=== PATIENT | female | born 1995 | race American Indian/Alaskan Native ===

== ENCOUNTER 2017-03-17 16:43 | Emergency (ER) | payer OTHER, MEDICAID ==
[2017-03-17 17:42] VITALS: BP 110/82
== END 2017-03-17 19:35 | disposition left against medical advice (07) ==
LOC: DL.ED 16:43
DX: Z53.21 Procedure and treatment not carried out due to patient leaving prior to being seen by health care provider (principal)
CPT/HCPCS: 99282

== ENCOUNTER 2017-03-17 21:19 | Emergency (ER) | payer MEDICAID, OTHER ==
[2017-03-17 21:30] VITALS: BP 120/80
[2017-03-17] MEDS ORDERED: Lidocaine 1% 30 ML SDV INJECT ONE (23:41)
[2017-03-17] MEDS ORDERED: Bacitracin Oint 1 GM U/D Packet TOP ONE (23:41)
--- NOTE | 2017-03-18 00:37 | EDM.PDOC ---
ED HPI GENERAL MEDICAL PROBLEM - General Chief Complaint: Laceration Stated Complaint: KNEE PAIN [id number] Time Seen by Provider: 03/17/17 23:00 Source of Information: Reports: Patient History Limitations: Reports: No Limitations - History of Present Illness INITIAL COMMENTS - FREE TEXT/NARRATIVE: laceration to right knee after falling onto sharp rock while playing basketball on gravel Len other injury, Occurred approximately 2pm today. Presented earlier but had left and came back. Onset: Today Duration: Hour(s): Location: Reports: Lower Extremity, Right Right Knee Pain Score (Numeric/FACES): 5 - Related Data Allergies Allergy/AdvReac Type Severity Reaction Status Date / Time No Known Allergies Allergy Verified 03/17/17 21:27 Home Meds: Home Meds . [No Known Home Meds] 03/17/17 [History] Past Medical History - Past Health History Medical/Surgical History: Denies Medical/Surgical History HEENT History: Reports: None Cardiovascular History: Reports: None Respiratory History: Reports: None Gastrointestinal History: Reports: None Genitourinary History: Reports: None Other OB/BYN History: Had section October 2014 Musculoskeletal History: Reports: None Neurological History: Reports: None Psychiatric History: Reports: None Endocrine/Metabolic History: Reports: None Hematologic History: Reports: None Immunologic History: Reports: None Oncologic (Cancer) History: Reports: None Dermatologic History: Reports: None Social & Family History - Family History Family Medical History: Noncontributory - Tobacco Use Smoking Status *Q: Light Tobacco Smoker Years of Tobacco use: 4 Packs/Tins Daily: 0.4 Used Tobacco, but Quit: Yes Month Tobacco Last Used: january Second Hand Smoke Exposure: No - Caffeine Use Caffeine Use: Reports: Coffee, Energy Drinks, Soda, Tea - Alcohol Use Days Per Week of Alcohol Use: 0 - Recreational Drug Use Recreational Drug Use: No ED ROS GENERAL - Review of Systems Review Of Systems: ROS reveals no pertinent complaints other than HPI. ED EXAM, SKIN/RASH Exam: See Below Exam Limited By: No Limitations General Appearance: Alert, Mild Distress Cardiovascular: Normal Peripheral Pulses Neurological: Alert, Oriented Psychiatric: Normal Affect Skin: Warm. No: Intact Location, Skin: Lower Extremity, Right Comments: 4cm gaping laceration lateral and below patella on RLE ED SKIN PROCEDURES - Laceration/Wound Repair Right Distal Knee Lac/wound length in cm: 3.5 Appearance: Subcutaneous Distal NVT: Neuro & Vascular Intact, No Tendon Injury Anesthetic Type: Local Local Anesthesia - Lidocaine (Xylocaine): 1% Plain Local Anesthetic Volume: 4cc Skin Prep: Chlorhexidine (Hibiciens), Saline Exploration/Debridement/Repair: Wound Explored, in a Bloodless Field, Minimal Debridement Closed with: Sutures Suture Size: 3-0 # of Sutures: 9 Suture Type: Nylon, Interrupted Suture Size: 3-0 # of Sutures: 3 Repaired with: Vicryl Sterile Dressing Applied: Nurse Tetanus Status Addressed: Yes Complications: No Right Lower Knee Lac/wound length in cm: 4 (gaping) Appearance: Subcutaneous Distal NVT: Neuro & Vascular Intact Anesthetic Type: Local Local Anesthesia - Lidocaine (Xylocaine): 1% Plain Local Anesthetic Volume: 4cc Skin Prep: Chlorhexidine (Hibiciens), Saline Exploration/Debridement/Repair: Wound Explored, Minimal Debridement Closed with: Sutures Suture Size: 3-0 # of Sutures: 9 Suture Type: Nylon Suture Size: 3-0 # of Sutures: 3 Repaired with: Vicryl Drain Placement: No Sterile Dressing Applied: Nurse Tetanus Status Addressed: Yes (2014) Complications: No Course - Vital Signs Last Recorded V/S: Last Vital Signs Temp 98.4 F 03/17/17 21:27 Pulse 98 03/17/17 21:27 Resp 18 03/17/17 21:27 BP 120/80 03/17/17 21:27 Pulse Ox 100 03/17/17 21:27 - Orders/Labs/Meds Meds: Medications Discontinued Medications Generic Name Dose Route Start Last Admin Trade Name Keara PRN Reason Stop Dose Admin Bacitracin 1 dose 03/17/17 23:41 03/18/17 00:05 Bacitracin Oint 1 Gm TOP 03/17/17 23:42 1 dose ONETIME ONE Administration Lidocaine HCl 30 ml 03/17/17 23:41 03/18/17 00:05 Xylocaine-Mpf 1% INJECT 03/17/17 23:42 30 ml ONETIME ONE Administration Departure - Departure Time of Disposition: 00:33 Disposition: Home, Self-Care 01 Condition: good Clinical Impression: Laceration of right knee Qualifiers: Encounter type: initial encounter Qualified Code(s): S81.011A - Laceration without foreign body, right knee, initial encounter - Discharge Information Instructions: Laceration Care, Adult, [id number] Forms: ED Department Discharge Additional Instructions: check to confirm tetnus status that it ws done in 2015. If not will need to have updated Saturday avoid strain on knee, limit bending follow up if redness or drainage sutures out in 2 weeks
== END 2017-03-18 00:37 | disposition home or self-care (01) ==
LOC: DL.ED 21:19
DX: S81.011A Laceration without foreign body, right knee, initial encounter (principal); Z87.891 Personal history of nicotine dependence; W19.XXXA Unspecified fall, initial encounter; Y93.67 Activity, basketball
CPT/HCPCS: 12002; 99282

== ENCOUNTER 2017-11-18 00:52 | Emergency (ER) | payer MEDICAID ==
[2017-11-18 01:09] VITALS: BP 117/75
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
[2017-11-18 01:52] LABS: CHLORIDE,CL 102 mmol/L (101-111); SODIUM,NA 137 mmol/L (135-145)
== END 2017-11-18 01:58 | disposition home or self-care (01) ==
LOC: DL.ED 00:52
DX: Z77.098 Contact with and (suspected) exposure to other hazardous, chiefly nonmedicinal, chemicals (principal); F17.210 Nicotine dependence, cigarettes, uncomplicated
CPT/HCPCS: 36415; 71046; 80053; 81001; 81025; 85025; 99284

== ENCOUNTER 2019-03-03 08:45 | Emergency (ER) | payer MEDICAID, OTHER ==
--- NOTE | 2019-03-03 08:56 | EDM.PDOC ---
ED HPI GENERAL MEDICAL PROBLEM - General Stated Complaint: CHEST AND BACK PAIN Time Seen by Provider: 03/03/19 08:56 Source of Information: Reports: Patient, RN, RN Notes Reviewed History Limitations: Reports: No Limitations - History of Present Illness INITIAL COMMENTS - FREE TEXT/NARRATIVE: Pt to ER with c/o severe epigastric pain that radiates to the back. She states she woke up this morning about 0630. Rates the pain 5-6/10. States she last ate at 11pm last night, [employer]. States she still has her gallbladder. Denies chest pain or SOB. Denies fever, chills, N/V/D. States she has never had a pain like this in the past. States there could be chance of . Onset: Today, Sudden Duration: Constant Location: Reports: Chest, Abdomen Quality: Reports: Sharp, Stabbing Severity: Severe Improves with: Reports: None Worsens with: Reports: None Associated Symptoms: Reports: Chest Pain Upper Back Pain Score (Numeric/FACES): 8 Middle Chest Pain Score (Numeric/FACES): 8 - Related Data Allergies Allergy/AdvReac Type Severity Reaction Status Date / Time No Known Allergies Allergy Verified 03/03/19 08:57 Home Meds: Home Meds . 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 ED EXAM, GENERAL - Physical Exam Exam: See Below Exam Limited By: No Limitations General Appearance: Alert, WD/WN, Anxious, Moderate Distress Eye Exam: Bilateral Eye: EOMI, Normal Inspection Ears: Normal External Exam, Hearing Grossly Normal Nose: Normal Inspection Throat/Mouth: Normal Inspection, Normal Voice, No Airway Compromise Head: Atraumatic, Normocephalic Neck: Normal Inspection, Supple, Non-Tender, Full Range of Motion Respiratory/Chest: No Respiratory Distress, Lungs Clear, Normal Breath Sounds, No Accessory Muscle Use, Chest Non-Tender Cardiovascular: Normal Peripheral Pulses, Regular Rate, Rhythm, No Edema, No Gallop, No JVD, No Murmur, No Rub Peripheral Pulses: 2+: Radial (L), Radial (R) GI/Abdominal: Normal Bowel Sounds, Soft, No Organomegaly, No Distention, No Abnormal Bruit, No Mass, Pelvis Stable, Tender (epigastrum) (Female) Exam: Deferred Rectal (Female) Exam: Deferred Back Exam: Normal Inspection, Full Range of Motion, NT Extremities: Normal Inspection, Normal Range of Motion, Non-Tender, Normal Capillary Refill, No Pedal Edema Neurological: Alert, Oriented, CN II-XII Intact, Normal Cognition, Normal Gait, Normal Reflexes, No Motor/Sensory Deficits Psychiatric: Anxious, Tearful Skin Exam: Warm, Dry, Intact, Normal Color, No Rash Lymphatic: No Adenopathy Course - Vital Signs Last Recorded V/S: Last Vital Signs Temp 97.3 F 03/03/19 08:58 Pulse 81 03/03/19 08:58 Resp 24 H 03/03/19 08:58 BP 105/77 03/03/19 08:58 Pulse Ox 100 03/03/19 08:58 - Orders/Labs/Meds Orders: Active Orders 24 hr Category Date Time Status EKG Documentation Completion [RC] STAT Care 03/03/19 09:01 Active Peripheral IV Care [RC] . DIRECTED Care 03/03/19 09:01 Active CULTURE URINE [RM] Stat Lab 03/03/19 09:01 Received Sodium Chloride 0.9% [Saline Flush] Med 03/03/19 09:00 Active 10 ml FLUSH ASDIRECTED PRN Peripheral IV Insertion Adult [OM.PC] Stat Oth 03/03/19 09:00 Ordered Medication Orders Sodium Chloride (Saline Flush) 10 ml FLUSH ASDIRECTED PRN PRN Reason: Keep Vein Open Last Admin: 03/03/19 09:23 Dose: 10 ml Labs: Laboratory Tests 05/21/19 05/21/19 05/21/19 Range/Units 08:55 08:55 08:55 WBC 8.5 (5.0-10.0) 10^3/uL RBC 4.60 (4.2-5.4) 10^6/uL Hgb 13.1 (12.0-16.0) g/dL Hct 38.9 (37.0-47.0) % MCV 84.6 (80-100) fL MCH 28.5 (27.0-34.0) pg MCHC 33.7 (33.0-35.0) g/dL Plt Count 265 (150-450) 10^3/uL Neut % (Auto) 49.5 (42.2-75.2) % Lymph % (Auto) 36.5 (20.5-50.1) % [place] % (Auto) 8.5 H (2-8) % Eos % (Auto) 5.3 H (1.0-3.0) % Baso % (Auto) 0.2 (0.0-1.0) % PT 9.6 (9.0-12.0) SEC INR 1.0 (0.9-1.2) Sodium 136 (135-145) mmol/L Potassium 3.3 L (3.6-5.0) mmol/L Chloride 104 (101-111) mmol/L Carbon Dioxide 22.0 (21.0-31.0) mmol/L Anion Gap 13.3 BUN 16 (7-18) mg/dL Creatinine 0.8 (0.6-1.3) mg/dL Est Cr Clr Drug Dosing 85.76 mL/min Estimated GFR (MDRD) > 60 BUN/Creatinine Ratio 20.00 Glucose 116 H (74-105) mg/dL Calcium 8.7 (8.4-10.2) mg/dl Total Bilirubin 1.0 (0.2-1.0) mg/dL AST 24 (10-42) IU/L ALT 25 (10-60) IU/L Alkaline Phosphatase 62 (42-121) IU/L Troponin I < 0.02 (0.00-0.02) ng/ml Total Protein 7.2 (6.7-8.2) g/dl Albumin 3.7 (3.2-5.5) g/dl Globulin 3.5 Albumin/Globulin Ratio 1.06 Amylase 22 L (28-100) U/L Lipase 26 (22-51) U/L Urine Color (YELLOW) Urine Appearance (CLEAR) Urine pH (5.0-9.0) Ur Specific [place] (1.005-1.030) Urine Protein (NEGATIVE) Urine Glucose (UA) (NEGATIVE) Urine Ketones (NEGATIVE) Urine Occult Blood (NEGATIVE) Urine Nitrite (NEGATIVE) Urine Bilirubin (NEGATIVE) Urine Urobilinogen (0.2-1.0) mg/dL Ur Leukocyte Esterase (NEGATIVE) Urine RBC /HPF Urine WBC (0-5/HPF) /HPF Ur Epithelial Cells (NOT SEEN) /HPF Urine Bacteria (0-FEW/HPF) /HPF Urine Mucus (NOT SEEN) /LPF Urine HCG, Qual Urine Opiates Screen (NEGATIVE) Ur Oxycodone Screen (NEGATIVE) Urine Methadone Screen (NEGATIVE) Ur Barbiturates Screen (NEGATIVE) U Tricyclic Antidepress (NEGATIVE) Ur Phencyclidine Scrn (NEGATIVE) Ur Amphetamine Screen (NEGATIVE) U Methamphetamines Scrn (NEGATIVE) Urine MDMA Screen (NEGATIVE) U Benzodiazepines Scrn (NEGATIVE) Urine Cocaine Screen (NEGATIVE) U Marijuana (THC) Screen (NEGATIVE) Ethyl Alcohol < 5 mg/dL 03/03/19 03/03/19 03/03/19 Range/Units 09:01 09:01 09:01 WBC (5.0-10.0) 10^3/uL RBC (4.2-5.4) 10^6/uL Hgb (12.0-16.0) g/dL Hct (37.0-47.0) % MCV (80-100) fL MCH (27.0-34.0) pg MCHC (33.0-35.0) g/dL Plt Count (150-450) 10^3/uL Neut % (Auto) (42.2-75.2) % Lymph % (Auto) (20.5-50.1) % [place] % (Auto) (2-8) % Eos % (Auto) (1.0-3.0) % Baso % (Auto) (0.0-1.0) % PT (9.0-12.0) SEC INR (0.9-1.2) Sodium (135-145) mmol/L Potassium (3.6-5.0) mmol/L Chloride (101-111) mmol/L Carbon Dioxide (21.0-31.0) mmol/L Anion Gap BUN (7-18) mg/dL Creatinine (0.6-1.3) mg/dL Est Cr Clr Drug Dosing mL/min Estimated GFR (MDRD) BUN/Creatinine Ratio Glucose (74-105) mg/dL Calcium (8.4-10.2) mg/dl Total Bilirubin (0.2-1.0) mg/dL AST (10-42) IU/L ALT (10-60) IU/L Alkaline Phosphatase (42-121) IU/L Troponin I (0.00-0.02) ng/ml Total Protein (6.7-8.2) g/dl Albumin (3.2-5.5) g/dl Globulin Albumin/Globulin Ratio Amylase (28-100) U/L Lipase (22-51) U/L Urine Color Dark yellow (YELLOW) Urine Appearance Slightly cloudy (CLEAR) Urine pH 6.0 (5.0-9.0) Ur Specific [place] >= 1.030 (1.005-1.030) Urine Protein 30 H (NEGATIVE) Urine Glucose (UA) Negative (NEGATIVE) Urine Ketones Negative (NEGATIVE) Urine Occult Blood Large H (NEGATIVE) Urine Nitrite Negative (NEGATIVE) Urine Bilirubin Negative (NEGATIVE) Urine Urobilinogen 1.0 (0.2-1.0) mg/dL Ur Leukocyte Esterase Small H (NEGATIVE) Urine RBC 5-10 H /HPF Urine WBC 5-10 H (0-5/HPF) /HPF Ur Epithelial Cells Many H (NOT SEEN) /HPF Urine Bacteria Few (0-FEW/HPF) /HPF Urine Mucus Moderate H (NOT SEEN) /LPF Urine HCG, Qual Negative Urine Opiates Screen Negative (NEGATIVE) Ur Oxycodone Screen Negative (NEGATIVE) Urine Methadone Screen Negative (NEGATIVE) Ur Barbiturates Screen Negative (NEGATIVE) U Tricyclic Antidepress Negative (NEGATIVE) Ur Phencyclidine Scrn Negative (NEGATIVE) Ur Amphetamine Screen Negative (NEGATIVE) U Methamphetamines Scrn Positive H (NEGATIVE) Urine MDMA Screen Negative (NEGATIVE) U Benzodiazepines Scrn Negative (NEGATIVE) Urine Cocaine Screen Negative (NEGATIVE) U Marijuana (THC) Screen Negative (NEGATIVE) Ethyl Alcohol mg/dL Meds: Medications Generic Name Dose Route Start Last Admin Trade Name Freq PRN Reason Stop Dose Admin Sodium Chloride 10 ml 03/03/19 09:00 03/03/19 09:23 Saline Flush FLUSH 10 ml ASDIRECTED PRN Administration Keep Vein Open Discontinued Medications Generic Name Dose Route Start Last Admin Trade Name Keara PRN Reason Stop Dose Admin Sodium Chloride 1,000 mls @ 999 mls/hr 03/03/19 09:00 03/03/19 09:22 Normal Saline IV 03/03/19 10:00 999 mls/hr .BOLUS ONE Administration Morphine Sulfate 2 mg 03/03/19 09:00 Morphine IVPUSH 03/03/19 09:01 ONETIME ONE Pantoprazole Sodium 80 mg 03/03/19 09:01 03/03/19 09:23 Protonix Iv IVPUSH 03/03/19 09:02 80 mg .BOLUS ONE Administration - Radiology Interpretation Free Text/Narrative:: Chest xray: No acute findings See rad report - Re-Assessments/Exams Free Text/Narrative Re-Assessment/Exam: 03/03/19 10:24 Patient states improvement with pain after protonix given. Departure - Departure Time of Disposition: 10:25 Disposition: Home, Self-Care 01 Condition: Fair Clinical Impression: Acid reflux Qualifiers: Esophagitis presence: without esophagitis Qualified Code(s): K21.9 - Gastro- esophageal reflux disease without esophagitis Instructions: Indigestion, [id number], Heartburn, [id number], Food Choices for Gastroesophageal Reflux Disease, Adult, Ltin-gn-[id number] Forms: ED Department Discharge Additional Instructions: RX: omeprazole Drink plenty of water Avoid spicy foods, chocolate, caffeine, pop, coffee, mint, tea Sit upright for at least 30 minutes after eating Follow up with your primary care facility if no improvement - My Orders Last 24 Hours: My Active Orders 03/03/19 09:00 Sodium Chloride 0.9% [Saline Flush] 10 ml FLUSH ASDIRECTED PRN Peripheral IV Insertion Adult [OM.PC] Stat 03/03/19 09:01 EKG Documentation Completion [RC] STAT Peripheral IV Care [RC] . DIRECTED CULTURE URINE [RM] Stat - Assessment/Plan Last 24 Hours: My Active Orders 03/03/19 09:00 Sodium Chloride 0.9% [Saline Flush] 10 ml FLUSH ASDIRECTED PRN Peripheral IV Insertion Adult [OM.PC] Stat 03/03/19 09:01 EKG Documentation Completion [RC] STAT Peripheral IV Care [RC] . DIRECTED CULTURE URINE [RM] Stat
[2019-03-03] MEDS ORDERED: Sodium Chloride 0.9% 10 ML Syringe FLUSH PRN (09:00)
[2019-03-03] MEDS ORDERED: Morphine 2 MG/ML Syringe IVPUSH ONE (09:00)
[2019-03-03] MEDS ORDERED: Sodium Chloride 0.9% 1,000 ML IV ONE (09:00)
[2019-03-03] MEDS ORDERED: Pantoprazole 40 MG Vial IVPUSH ONE (09:01)
[2019-03-03 09:10] VITALS: BP 105/77
[2019-03-03 09:27] LABS: ANION GAP 13.3; CHLORIDE,CL 104 mmol/L (101-111); SODIUM,NA 136 mmol/L (135-145)
--- NOTE | 2019-03-03 09:31 | CR ---
Clinical history: 23-year-old female chest pain. Interpretation: (upright AP portable) No acute new cardiopulmonary abnormality identified in the interval since 18 November 2017. Normal cardiac silhouette without cephalization of flow, signs of alveolar edema or dependent effusion. Reshma thorax unremarkable. No lung mass, hilar lymphadenopathy or focal lobar pneumonia. No atelectasis or collapse. No pneumothorax.
== END 2019-03-03 10:37 | disposition home or self-care (01) ==
LOC: DL.ED 08:45
DX: K21.9 Gastro-esophageal reflux disease without esophagitis (principal)
CPT/HCPCS: 36415; 71045; 80053; 80305; 81001; 81025; 82150; 83690; 84484; 85025; 85610; 87086; 87088; 87186; 93005; 96361; 96374; 99285; C9113; G0480; J7030; J2270

== ENCOUNTER 2019-03-10 00:50 | Emergency (ER) | payer OTHER ==
[2019-03-10 01:42] LABS: ANION GAP 16.8; CHLORIDE,CL 103 mmol/L (101-111); SODIUM,NA 136 mmol/L (135-145)
[2019-03-10] MEDS ORDERED: Potassium Chloride 10 MEQ Tab.ER PO ONE (03:32)
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
[2019-03-10] MEDS ORDERED: Iopamidol 612 MG/ML 100 ML Bottle IVPUSH ONE (04:14)
== END 2019-03-10 03:50 | disposition home or self-care (01) ==
LOC: DL.ED 00:50
DX: S61.412A Laceration without foreign body of left hand, initial encounter (principal); S20.219A Contusion of unspecified front wall of thorax, initial encounter; F15.10 Other stimulant abuse, uncomplicated; E87.6 Hypokalemia; V49.59XA Passenger injured in collision with other motor vehicles in traffic accident, initial encounter
CPT/HCPCS: 36415; 70450; 71260; 72125; 74177; 80053; 80305; 81001; 81025; 85025; 85610; 85730; 87086; 99284; A9270; G0480; Q9967

== ENCOUNTER 2020-03-14 16:47 | Emergency (ER) | payer MEDICAID, OTHER ==
--- NOTE | 2020-03-14 17:10 | EDM.PDOC ---
ED HPI GENERAL MEDICAL PROBLEM - General Chief Complaint: Gastrointestinal Problem Stated Complaint: ABD/BACK PAIN/VOMITING Time Seen by Provider: 03/14/20 17:10 Source of Information: Reports: Patient, Old Records, RN, RN Notes Reviewed History Limitations: Reports: No Limitations - History of Present Illness INITIAL COMMENTS - FREE TEXT/NARRATIVE: Pt presents to ER from home by POV with c/o upper abdominal pain that began yesterday, and has been associated with severe nausea and vomiting, and some diarrhea. Pt denies fever, chills, flank pain or dysuria. She admits to RUQ pain and epigastric pain that radiates straight through to the middle of the back. Pt admits to marijuana use, and tried some methamphetamine a few days ago. Her LMP was "about" 2 or 3 months ago. She has not taken a home test. Denies alcohol use. Onset: Gradual Duration: Constant Location: Reports: Abdomen Quality: Reports: Ache, Pressure, Sharp Severity: Severe Improves with: Reports: None Worsens with: Reports: Eating Associated Symptoms: Reports: No Other Symptoms Abdomen Pain Score (Numeric/FACES): 8 - Related Data Allergies Allergy/AdvReac Type Severity Reaction Status Date / Time No Known Allergies Allergy Verified 03/14/20 17:37 Home Meds: Home Meds . 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 Musculoskeletal History: Reports: None Neurological History: Reports: None Psychiatric History: Reports: None Endocrine/Metabolic History: Reports: None Hematologic History: Reports: None Immunologic History: Reports: None Oncologic (Cancer) History: Reports: None Dermatologic History: Reports: None Social & Family History - Family History Family Medical History: Noncontributory - Caffeine Use Caffeine Use: Reports: Soda - Alcohol Use Alcohol Use History: No - Recreational Drug Use Recreational Drug Use: Yes Drug Use in Last 12 Months: Yes Recreational Drug Type: Reports: Marijuana/Hashish, Methamphetamine Recreational Drug Use Frequency: Socially ED ROS GENERAL - Review of Systems Review Of Systems: Comprehensive ROS is negative, except as noted in HPI. ED EXAM, GI/ABD - Physical Exam Exam: See Below Exam Limited By: No Limitations General Appearance: Alert, Mild Distress Eyes: Bilateral: EOMI (Slight scleral icterus) Nose: Normal Inspection, Normal Mucosa, No Blood Throat/Mouth: Normal Lips, Normal Teeth, Normal Gums, Normal Oropharynx, Normal Voice, No Airway Compromise, Other (Dry oral mucosa) Head: Atraumatic, Normocephalic Neck: Normal Inspection, Supple, Non-Tender, Full Range of Motion. No: Lymphadenopathy (L), Lymphadenopathy (R) Respiratory/Chest: No Respiratory Distress, Lungs Clear, Normal Breath Sounds, No Accessory Muscle Use, Chest Non-Tender Cardiovascular: Normal Peripheral Pulses, Regular Rate, Rhythm, No Edema, No Gallop, No JVD, No Murmur, No Rub GI/Abdominal Exam: Normal Bowel Sounds, Soft, No Organomegaly, No Distention, No Abnormal Bruit, No Mass, Guarding (at epigastric region), Tender (RUQ, epigastric). No: Rigid, Rebound (Female) Exam: Deferred Rectal (Female) Exam: Deferred Back Exam: Normal Inspection, Full Range of Motion. No: CVA Tenderness (L), CVA Tenderness (R) Extremities: Normal Inspection Neurological: Alert, Oriented, CN II-XII Intact, Normal Cognition, Normal Gait, No Motor/Sensory Deficits Psychiatric: Normal Affect, Normal Mood Skin Exam: Warm, Dry, Intact, No Rash. No: Ecchymosis, Petechiae Course - Vital Signs Last Recorded V/S: Last Vital Signs Temp 97.6 F 03/14/20 17:00 Pulse 70 03/14/20 17:00 Resp 14 03/14/20 17:00 BP 111/71 03/14/20 17:00 Pulse Ox 100 03/14/20 17:00 - Orders/Labs/Meds Orders: Active Orders 24 hr Category Date Time Status Peripheral IV Care [RC] . DIRECTED Care 03/14/20 17:12 Active CULTURE URINE [RM] Stat Lab 03/14/20 17:09 Received Sodium Chloride 0.9% [Saline Flush] Med 03/14/20 17:11 Active 10 ml FLUSH ASDIRECTED PRN Peripheral IV Insertion Adult [OM.PC] Stat Oth 03/14/20 17:12 Ordered Medication Orders Sodium Chloride (Saline Flush) 10 ml FLUSH ASDIRECTED PRN PRN Reason: Keep Vein Open Last Admin: 03/14/20 17:32 Dose: 10 ml Labs: Laboratory Tests 03/14/20 03/14/20 03/14/20 Range/Units 17:09 17:18 17:18 WBC 12.0 H (5.0-10.0) 10^3/uL RBC 5.10 (4.2-5.4) 10^6/uL Hgb 14.6 (12.0-16.0) g/dL Hct 43.8 (37.0-47.0) % MCV 85.9 D (80-100) fL MCH 28.6 (27.0-34.0) pg MCHC 33.3 (33.0-35.0) g/dL Plt Count 245 (150-450) 10^3/uL Neut % (Auto) 88.9 H (42.2-75.2) % Lymph % (Auto) 7.1 L (20.5-50.1) % [place] % (Auto) 3.8 (2-8) % Eos % (Auto) 0.1 L (1.0-3.0) % Baso % (Auto) 0.1 (0.0-1.0) % Sodium 138 (136-145) mmol/L Potassium 3.9 (3.5-5.1) mmol/L Chloride 101 (98-107) mmol/L Carbon Dioxide 27 (21-32) mmol/L Anion Gap 13.9 H (7-13) mEq/L BUN 10 (7-18) mg/dL Creatinine 0.86 (0.55-1.02) mg/dL Est Cr Clr Drug Dosing 82.72 mL/min Estimated GFR (MDRD) > 60 BUN/Creatinine Ratio 11.6 (No establ ref range) Glucose 145 H (74-99) mg/dL Calcium 8.5 (8.5-10.1) mg/dL Total Bilirubin 5.0 H (0.2-1.0) mg/dL AST 514 H (15-37) U/L ALT 986 H (14-59) U/L Alkaline Phosphatase 194 H (46-116) U/L Total Protein 7.7 (6.4-8.2) g/dL Albumin 3.6 (3.4-5.0) g/dL Globulin 4.1 Albumin/Globulin Ratio 0.88 Amylase 1364 H (25-115) U/L Lipase 7204 H (73-393) U/L Urine Color Dark yellow (YELLOW) Urine Appearance Slightly cloudy (CLEAR) Urine pH 6.0 (5.0-9.0) Ur Specific [place] >= 1.030 (1.005-1.030) Urine Protein Trace H (NEGATIVE) Urine Glucose (UA) Negative (NEGATIVE) Urine Ketones Negative (NEGATIVE) Urine Occult Blood Negative (NEGATIVE) Urine Nitrite Negative (NEGATIVE) Urine Bilirubin Large H (NEGATIVE) Urine Urobilinogen 1.0 (0.2-1.0) mg/dL Ur Leukocyte Esterase Small H (NEGATIVE) Urine RBC 0-5 /HPF Urine WBC 50-75 H (0-5/HPF) /HPF Ur Epithelial Cells Few (NOT SEEN) /HPF Amorphous Sediment Few (NOT SEEN) /HPF Urine Bacteria Few (0-FEW/HPF) /HPF Urine Mucus Moderate H (NOT SEEN) /LPF Urine Trichomonas Present H (NOT SEEN) /HPF Urine HCG, Qual Urine Opiates Screen (NEGATIVE) Ur Oxycodone Screen (NEGATIVE) Urine Methadone Screen (NEGATIVE) Ur Barbiturates Screen (NEGATIVE) U Tricyclic Antidepress (NEGATIVE) Ur Phencyclidine Scrn (NEGATIVE) Ur Amphetamine Screen (NEGATIVE) U Methamphetamines Scrn (NEGATIVE) Urine MDMA Screen (NEGATIVE) U Benzodiazepines Scrn (NEGATIVE) Urine Cocaine Screen (NEGATIVE) U Marijuana (THC) Screen (NEGATIVE) 03/14/20 03/14/20 Range/Units 17:19 17:19 WBC (5.0-10.0) 10^3/uL RBC (4.2-5.4) 10^6/uL Hgb (12.0-16.0) g/dL Hct (37.0-47.0) % MCV (80-100) fL MCH (27.0-34.0) pg MCHC (33.0-35.0) g/dL Plt Count (150-450) 10^3/uL Neut % (Auto) (42.2-75.2) % Lymph % (Auto) (20.5-50.1) % [place] % (Auto) (2-8) % Eos % (Auto) (1.0-3.0) % Baso % (Auto) (0.0-1.0) % Sodium (136-145) mmol/L Potassium (3.5-5.1) mmol/L Chloride (98-107) mmol/L Carbon Dioxide (21-32) mmol/L Anion Gap (7-13) mEq/L BUN (7-18) mg/dL Creatinine (0.55-1.02) mg/dL Est Cr Clr Drug Dosing mL/min Estimated GFR (MDRD) BUN/Creatinine Ratio (No establ ref range) Glucose (74-99) mg/dL Calcium (8.5-10.1) mg/dL Total Bilirubin (0.2-1.0) mg/dL AST (15-37) U/L ALT (14-59) U/L Alkaline Phosphatase (46-116) U/L Total Protein (6.4-8.2) g/dL Albumin (3.4-5.0) g/dL Globulin Albumin/Globulin Ratio Amylase (25-115) U/L Lipase (73-393) U/L Urine Color (YELLOW) Urine Appearance (CLEAR) Urine pH (5.0-9.0) Ur Specific [place] (1.005-1.030) Urine Protein (NEGATIVE) Urine Glucose (UA) (NEGATIVE) Urine Ketones (NEGATIVE) Urine Occult Blood (NEGATIVE) Urine Nitrite (NEGATIVE) Urine Bilirubin (NEGATIVE) Urine Urobilinogen (0.2-1.0) mg/dL Ur Leukocyte Esterase (NEGATIVE) Urine RBC /HPF Urine WBC (0-5/HPF) /HPF Ur Epithelial Cells (NOT SEEN) /HPF Amorphous Sediment (NOT SEEN) /HPF Urine Bacteria (0-FEW/HPF) /HPF Urine Mucus (NOT SEEN) /LPF Urine Trichomonas (NOT SEEN) /HPF Urine HCG, Qual Negative Urine Opiates Screen Negative (NEGATIVE) Ur Oxycodone Screen Negative (NEGATIVE) Urine Methadone Screen Negative (NEGATIVE) Ur Barbiturates Screen Negative (NEGATIVE) U Tricyclic Antidepress Negative (NEGATIVE) Ur Phencyclidine Scrn Negative (NEGATIVE) Ur Amphetamine Screen Positive H (NEGATIVE) U Methamphetamines Scrn Positive H (NEGATIVE) Urine MDMA Screen Negative (NEGATIVE) U Benzodiazepines Scrn Negative (NEGATIVE) Urine Cocaine Screen Negative (NEGATIVE) U Marijuana (THC) Screen Positive H (NEGATIVE) Meds: Medications Generic Name Dose Route Start Last Admin Trade Name Freq PRN Reason Stop Dose Admin Sodium Chloride 10 ml 03/14/20 17:11 03/14/20 17:32 Saline Flush FLUSH 10 ml ASDIRECTED PRN Administration Keep Vein Open Discontinued Medications Generic Name Dose Route Start Last Admin Trade Name Freq PRN Reason Stop Dose Admin Azithromycin 1,000 mg 03/14/20 17:52 03/14/20 18:05 Zithromax PO 03/14/20 17:53 1,000 mg ONETIME ONE Administration Hydromorphone HCl 1 mg 03/14/20 17:53 03/14/20 18:04 Dilaudid IVPUSH 03/14/20 17:54 1 mg ONETIME ONE Administration Sodium Chloride 1,000 mls @ 999 mls/hr 03/14/20 17:12 03/14/20 18:20 Normal Saline IV 03/14/20 18:12 400 mls/hr .BOLUS ONE Infusion Ceftriaxone Sodium 1 gm/ 50 mls @ 100 mls/hr 03/14/20 17:51 03/14/20 18:11 Sodium Chloride IV 03/14/20 18:20 100 mls/hr ONETIME ONE Administration Metronidazole 500 mg/ Premix 100 mls @ 100 mls/hr 03/14/20 17:51 03/14/20 18: 48 IV 03/14/20 18:50 100 mls/hr ONETIME ONE Administration Iopamidol 100 ml 03/14/20 17:54 03/14/20 18:25 Isovue-300 (61%) IVPUSH 03/14/20 17:55 75 ml ONETIME ONE Administration Ketorolac Tromethamine 30 mg 03/14/20 17:50 03/14/20 18:20 Toradol IVPUSH 03/14/20 17:51 Not Given ONETIME ONE Ondansetron HCl 4 mg 03/14/20 17:12 03/14/20 17:32 Zofran IV 03/14/20 17:13 4 mg ONETIME ONE Administration Ondansetron HCl 4 mg 03/14/20 17:52 03/14/20 18:05 Zofran IV 03/14/20 17:53 4 mg ONETIME ONE Administration - Radiology Interpretation Free Text/Narrative:: [facility] Final Radiology Report Call: [phone] assistance Online chat: [email or web address] Name: ANDRE PENA Age: 24Years F Date: 03/14/2020 SSN: -- : [id number] Study: CT ABDOMEN PELVIS W CONT Requesting Physician: DAE GOMEZ Images: [id number] Addl Studies: Provided Clinical History: pancreatitis, elev. LFTs, RUQ epigastric pain Contrast: With Contrast Medium: Isovue 300 Contrast Amount: 75 mL Contrast Method: RAC Page 1 of 2 PROCEDURE INFORMATION: Exam: CT Abdomen And Pelvis With Contrast Exam date and time: 03/14/2020 6:15 PM Age: 24 years old Clinical indication: Abdominal pain; Localized; Right upper quadrant (ruq); Additional info: Pancreatitis, elev. Lfts, ruq epigastric pain TECHNIQUE: Imaging protocol: Computed tomography of the abdomen and pelvis with intravenous contrast. Radiation optimization: All CT scans at this facility use at least one of these dose optimization techniques: automated exposure control; mA and/or kV adjustment per patient size (includes targeted exams where dose is matched to clinical indication); or iterative reconstruction. Contrast material: ISOVUE 300; Contrast volume: 75 ml; Contrast route: RAC; COMPARISON: No relevant prior studies available. FINDINGS: Liver: Normal. No mass. Gallbladder and bile ducts: There is mild gallbladder wall thickening . The gallbladder is not distended. There is trace pericholecystic fluid. The gallbladder demonstrates layering density consistent with tiny nonopaque calculi or sludge. There is no evidence of biliary ductal dilation. Pancreas: There is moderate peripancreatic inflammatory stranding and fluid, consistent with moderate acute pancreatitis. There is no evidence of pancreatic necrosis. No visible pseudocyst. There is no evidence of abscess formation. Spleen: Normal. No splenomegaly. Adrenals: Normal. No mass. Kidneys and ureters: Normal. No hydronephrosis. Stomach and bowel: See "Soft tissues" finding. Appendix: No evidence of appendicitis. ANDRE PENA | Final Radiology Report CONFIDENTIALITY STATEMENT This report is intended only for use by the referring physician, and only in accordance with law. If you received this in error, call [phone]. Page 2 of 2 Intraperitoneal space: Unremarkable. No free air. Trace fluid cul-de-sac. Vasculature: Unremarkable. No abdominal aortic aneurysm. Lymph nodes: Unremarkable. No enlarged lymph nodes. Bladder: Unremarkable as visualized. Reproductive: Unremarkable as visualized. Bones/joints: Unremarkable. No acute fracture. Soft tissues: There is a fat-containing umbilical hernia. No bowel loops are involved. The defect in the wall measures 4-5 mm. IMPRESSION: 1. Acute pancreatitis. 2. Abnormal gallbladder. Correlate with clinical data. While the gallbladder is not distended superimposed cholecystitis cannot be excluded on the basis of imaging findings. 3. Other findings as described. Thank you for allowing us to participate in the care of your patient. Dictated and Authenticated by: Getachew Vang MD 03/14/2020 6:44 PM Central Time ([place] & [place]) Departure - Departure Time of Disposition: 18:46 Disposition: DC/Tfer to [facility] 02 Condition: Fair, Serious Clinical Impression: Vaginal trichomoniasis, STD exposure, Marijuana abuse, Methamphetamine abuse Acute pancreatitis Qualifiers: Pancreatitis type: biliary Acute pancreatitis complication: unspecified Qualified Code(s): K85.10 - Biliary acute pancreatitis without necrosis or infection Cholecystitis with cholelithiasis Qualifiers: Cholelithiasis location: gallbladder and bile duct Cholecystitis acuity: acute Biliary obstruction: with biliary obstruction Qualified Code(s): K80.63 - Calculus of gallbladder and bile duct with acute cholecystitis with obstruction - Discharge Information *PRESCRIPTION DRUG MONITORING PROGRAM REVIEWED*: Not Applicable *COPY OF PRESCRIPTION DRUG MONITORING REPORT IN PATIENT TEVIN: Not Applicable Forms: ED Department Discharge, Interfacility Transfer EMTALA Sepsis Event Note - Focused Exam Vital Signs: Vital Signs Temp Pulse Resp BP Pulse Ox 03/14/20 17:00 97.6 F 70 14 111/71 100 Date Exam was Performed: 03/14/20 Time Exam was Performed: 18:54 - My Orders Last 24 Hours: My Active Orders 03/14/20 17:09 CULTURE URINE [RM] Stat 03/14/20 17:11 Sodium Chloride 0.9% [Saline Flush] 10 ml FLUSH ASDIRECTED PRN 03/14/20 17:12 Peripheral IV Care [RC] . DIRECTED Peripheral IV Insertion Adult [OM.PC] Stat - Assessment/Plan Last 24 Hours: My Active Orders 03/14/20 17:09 CULTURE URINE [RM] Stat 03/14/20 17:11 Sodium Chloride 0.9% [Saline Flush] 10 ml FLUSH ASDIRECTED PRN 03/14/20 17:12 Peripheral IV Care [RC] . DIRECTED Peripheral IV Insertion Adult [OM.PC] Stat
[2020-03-14] MEDS ORDERED: Sodium Chloride 0.9% 10 ML Syringe FLUSH PRN (17:11)
[2020-03-14] MEDS ORDERED: Sodium Chloride 0.9% 1,000 ML IV ONE (17:12)
[2020-03-14] MEDS ORDERED: Ondansetron 4 MG/2 ML SDV IV ONE ×2 (17:12→17:52)
[2020-03-14 17:37] VITALS: BP 111/71; PULSE 70
[2020-03-14 17:49] LABS: ANION GAP 13.9 mEq/L (7-13); CHLORIDE,CL 101 mmol/L (98-107); SODIUM,NA 138 mmol/L (136-145)
[2020-03-14] MEDS ORDERED: Ketorolac 30 MG/ML SDV IVPUSH ONE (17:50)
[2020-03-14] MEDS ORDERED: cefTRIAXone 1 GM in Sodium Chloride 0.9% 50 ML IV ONE (17:51)
[2020-03-14] MEDS ORDERED: metroNIDAZOLE/Normal Saline 500 MG in Premix Bag 100 BAG IV ONE (17:51)
[2020-03-14] MEDS ORDERED: Azithromycin 250 MG Tab PO ONE (17:52)
[2020-03-14] MEDS ORDERED: HYDROmorphone 1 MG/ML Syringe IVPUSH ONE (17:53)
[2020-03-14] MEDS ORDERED: Iopamidol 612 MG/ML 100 ML Bottle IVPUSH ONE (17:54)
--- NOTE | 2020-03-14 18:44 | CT ---
PROCEDURE INFORMATION: Exam: CT Abdomen And Pelvis With Contrast Exam date and time: 03/14/2020 6:15 PM Age: 24 years old Clinical indication: Abdominal pain; Localized; Right upper quadrant (ruq); Additional info: Pancreatitis, elev. Lfts, ruq epigastric pain TECHNIQUE: Imaging protocol: Computed tomography of the abdomen and pelvis with intravenous contrast. Radiation optimization: All CT scans at this facility use at least one of these dose optimization techniques: automated exposure control; mA and/or kV adjustment per patient size (includes targeted exams where dose is matched to clinical indication); or iterative reconstruction. Contrast material: ISOVUE 300; Contrast volume: 75 ml; Contrast route: RAC; COMPARISON: No relevant prior studies available. FINDINGS: Liver: Normal. No mass. Gallbladder and bile ducts: There is mild gallbladder wall thickening . The gallbladder is not distended. There is trace pericholecystic fluid. The gallbladder demonstrates layering density consistent with tiny nonopaque calculi or sludge. There is no evidence of biliary ductal dilation. Pancreas: There is moderate peripancreatic inflammatory stranding and fluid, consistent with moderate acute pancreatitis. There is no evidence of pancreatic necrosis. No visible pseudocyst. There is no evidence of abscess formation. Spleen: Normal. No splenomegaly. Adrenals: Normal. No mass. Kidneys and ureters: Normal. No hydronephrosis. Stomach and bowel: See "Soft tissues" finding. Appendix: No evidence of appendicitis. Intraperitoneal space: Unremarkable. No free air. Trace fluid cul-de-sac. Vasculature: Unremarkable. No abdominal aortic aneurysm. Lymph nodes: Unremarkable. No enlarged lymph nodes. Bladder: Unremarkable as visualized. Reproductive: Unremarkable as visualized. Bones/joints: Unremarkable. No acute fracture. Soft tissues: There is a fat-containing umbilical hernia. No bowel loops are involved. The defect in the wall measures 4-5 mm. IMPRESSION: 1. Acute pancreatitis. 2. Abnormal gallbladder. Correlate with clinical data. While the gallbladder is not distended superimposed cholecystitis cannot be excluded on the basis of imaging findings. 3. Other findings as described.
== END 2020-03-14 19:30 ==
LOC: DL.ED 16:47
DX: K80.63 Calculus of gallbladder and bile duct with acute cholecystitis with obstruction (principal); K85.10 Biliary acute pancreatitis without necrosis or infection; A59.01 Trichomonal vulvovaginitis; Z20.2 Contact with and (suspected) exposure to infections with a predominantly sexual mode of transmission; F12.10 Cannabis abuse, uncomplicated; F15.10 Other stimulant abuse, uncomplicated
CPT/HCPCS: 36415; 74177; 80053; 80305; 81001; 81025; 82150; 83690; 85025; 87086; 96361; 96365; 96367; 96375; 96376; 99285; A9270; J0696; J1170; J2405; J3490; J7030; J7050; Q9967

== ENCOUNTER 2021-10-05 23:11 | Emergency (ER) | payer MEDICAID, OTHER ==
[2021-10-05 23:54] VITALS: PULSE 84
[2021-10-06 00:26] LABS: CORONAVIRUS COVID-19 NAA NEGATIVE (NEGATIVE); RESPIRATORY SYNCYTIAL VIR NAA NEGATIVE (NEGATIVE)
--- NOTE | 2021-10-06 00:50 | EDM.PDOC ---
ED HPI GENERAL MEDICAL PROBLEM - General Chief Complaint: Respiratory Problem Stated Complaint: HARD BREATHING, RUNNY NOSE, FATIGUE Time Seen by Provider: 10/05/21 23:57 Source of Information: Reports: Patient, RN, RN Notes Reviewed History Limitations: Reports: No Limitations - History of Present Illness INITIAL COMMENTS - FREE TEXT/NARRATIVE: Mariel is a 26 y/o female who presents to the ED via personal vehicle with complaints of cough, muscle aches, headache, and sore throat. The patient states her symptoms began three days ago and have maintained in severity over that time. She reports she had a fever at home with a TMax of 98.9. She has taken transient doses of acetaminophen 650mg, Vicks Vapor Rub, and Benadryl 25mg with mild alleviation in her symptoms. She denies vision changes, dizziness, chest pain/pressure, palpitations, shortness of breath, dyspepsia, nausea, vomiting, or abdominal pain. She denies decrease in food or fluid intake. The patient attests to smoking 1/2 pack of cigarettes per day; she denies alcohol or recreational drug use. - Related Data Allergies Allergy/AdvReac Type Severity Reaction Status Date / Time No Known Allergies Allergy Verified 03/14/20 17:37 Home Meds: Home Meds . 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 Musculoskeletal History: Reports: None Neurological History: Reports: None Psychiatric History: Reports: None Endocrine/Metabolic History: Reports: None Hematologic History: Reports: None Immunologic History: Reports: None Oncologic (Cancer) History: Reports: None Dermatologic History: Reports: None Social & Family History - Family History Family Medical History: No Pertinent Family History - Tobacco Use Tobacco Use Status *Q: Current Every Day Tobacco User Years of Tobacco use: 5 Packs/Tins Daily: 0.6 - Caffeine Use Caffeine Use: Reports: Soda ED ROS GENERAL - Review of Systems Review Of Systems: Comprehensive ROS is negative, except as noted in HPI. ED EXAM, GENERAL - Physical Exam Exam: See Below Exam Limited By: No Limitations General Appearance: Alert, No Apparent Distress Eye Exam: Bilateral Eye: EOMI, Normal Inspection, PERRL (3mm) Ears: Normal External Exam, Normal Canal, Hearing Grossly Normal, Normal TMs Ear Exam: Bilateral Ear: Auricle Normal, Canal Normal, TM normal Nose: Normal Inspection, Normal Mucosa, No Blood Throat/Mouth: Normal Inspection, Normal Lips, Normal Teeth, Normal Gums, Normal Oropharynx, Normal Voice, No Airway Compromise Head: Atraumatic, Normocephalic Neck: Normal Inspection, Supple, Non-Tender, Full Range of Motion. No: Lymphadenopathy (L), Lymphadenopathy (R) Respiratory/Chest: No Respiratory Distress, Lungs Clear, Normal Breath Sounds, No Accessory Muscle Use, Chest Non-Tender. No: Crackles, Rales, Rhonchi, Wheezing, Stridor Cardiovascular: Normal Peripheral Pulses, Regular Rate, Rhythm, No Edema, No Gallop, No JVD, No Murmur, No Rub Peripheral Pulses: 2+: Radial (L), Radial (R) GI/Abdominal: Normal Bowel Sounds, Soft, Non-Tender, No Distention, No Abnormal Bruit, No Mass, Pelvis Stable (Female) Exam: Deferred Rectal (Female) Exam: Deferred Back Exam: Normal Inspection, Full Range of Motion Extremities: Normal Inspection, Normal Range of Motion, Non-Tender, No Pedal Edema, Normal Capillary Refill Neurological: Alert, Oriented, CN II-XII Intact, Normal Cognition, Normal Gait, Normal Reflexes, No Motor/Sensory Deficits Psychiatric: Normal Affect, Normal Mood Skin Exam: Warm, Dry, Intact, Normal Color, No Rash. No: Cyanosis, Jaundice, Mottled, Pallor Course - Vital Signs Last Recorded V/S: Last Vital Signs Temp 98.4 F 10/05/21 23:52 Pulse 84 10/05/21 23:52 Resp 18 10/05/21 23:52 BP Pulse Ox 96 10/05/21 23:52 - Orders/Labs/Meds Labs: Laboratory Tests 10/05/21 Range/Units 23:20 Influenza Type A RNA Negative (NEGATIVE) RSV RNA ([facility]) Negative (NEGATIVE) Influenza Type B RNA Negative (NEGATIVE) SARS-CoV-2 RNA ([facility]) Negative (NEGATIVE) - Re-Assessments/Exams Free Text/Narrative Re-Assessment/Exam: 10/05/21 COVID/Influenza/RSV sent. Findings of examination and lab work reviewed with patient. Supportive cares for viral URI discussed. Patient instructed to follow up with primary care provider regarding todays visit. Red flag signs and symptoms which would warrant immediate reevaluation reviewed. Patient verbalized understanding and agreement with the plan of care. Departure - Departure Time of Disposition: 01:05 Disposition: Home, Self-Care 01 Condition: Good Clinical Impression: Viral upper respiratory infection - Discharge Information *PRESCRIPTION DRUG MONITORING PROGRAM REVIEWED*: Not Applicable *COPY OF PRESCRIPTION DRUG MONITORING REPORT IN PATIENT TEVIN: Not Applicable Instructions: Viral Respiratory Infection, Monr-Ot-Eanr Forms: ED Department Discharge Additional Instructions: 1.) You may take ibuprofen (Advil/Motrin) 400mg every six hours, as headache and body aches persist. You may also take acetaminophen (Tylenol) 650-1000mg every six hours, as pain persists. You may stagger these medications so you are taking a dose of either every three hours. 2.) You may take an [id number] cough syrup, such as Robitussin, for persistent cough. 3.) Frequent warm salt water gargles will help with throat pain. 4.) Continue with Vicks chest rub to help with congestion. 5.) Follow up with your primary care provider in 5-7 days regarding tonight's visit. Sepsis Event Note (ED) - Evaluation Sepsis Screening Result: No Definite Risk - Focused Exam Vital Signs: Vital Signs Temp Pulse Resp Pulse Ox 10/05/21 23:52 98.4 F 84 18 96
== END 2021-10-06 01:03 | disposition home or self-care (01) ==
LOC: DL.ED 23:11
DX: J06.9 Acute upper respiratory infection, unspecified (principal); Z72.0 Tobacco use; Z20.822 Contact with and (suspected) exposure to COVID-19
CPT/HCPCS: 0241U; 99283

== ENCOUNTER 2022-08-14 18:53 | Emergency (ER) | payer MEDICAID ==
[~2022-08-14 18:53] MED LIST: Pantoprazole 40 MG Vial IVPUSH ONE; Sodium Chloride 0.9% 1,000 ML IV ONE
[2022-08-14 19:19] LABS: ANION GAP 13.5 mEq/L (7-13); CHLORIDE,CL 104 mmol/L (98-107); ESTIMATED GFR 106 mL/min (>=60); SODIUM,NA 140 mmol/L (136-145)
[2022-08-14 19:30] VITALS: BP 115/98; PULSE 103
[2022-08-14 19:35] LABS: AMPHETAMINES,URINE NEGATIVE (NEGATIVE); BARBITURATES,URINE NEGATIVE (NEGATIVE); BENZODIAZEPINE,URINE NEGATIVE (NEGATIVE); MDMA (ECSTASY), URINE NEGATIVE (NEGATIVE); METHADONE,URINE NEGATIVE (NEGATIVE); METHAMPHETAMINES,URINE NEGATIVE (NEGATIVE); OPIATES,URINE NEGATIVE (NEGATIVE); OXYCODONE,URINE NEGATIVE (NEGATIVE); PHENCYCLIDINE,URINE NEGATIVE (NEGATIVE); TCA,URINE NEGATIVE (NEGATIVE)
== END 2022-08-14 20:14 | disposition home or self-care (01) ==
LOC: DL.ED 18:53
DX: S00.83XA Contusion of other part of head, initial encounter (principal); Y09 Assault by unspecified means
CPT/HCPCS: 36415; 70450; 70486; 72125; 80053; 80305; 80307; 85025; 96374; 99285; C9113; J7030

== ENCOUNTER 2023-06-08 12:39 | Emergency (ER) | payer MEDICAID | END 2023-06-08 13:27 | disposition left against medical advice (07) | LOC: DL.ED 12:39 | DX: Z53.21 Procedure and treatment not carried out due to patient leaving prior to being seen by health care provider (principal) ==

== ENCOUNTER 2023-06-08 13:40 | Emergency (ER) | payer MEDICAID ==
[2023-06-08 13:47] VITALS: BP 117/77; PULSE 105
[2023-06-08] MEDS ORDERED: Lidocaine 2% 20 ML MDV INJECT ONE (13:56)
[2023-06-08] MEDS ORDERED: Lidocaine 1% 30 ML SDV INJECT ONE (14:01)
== END 2023-06-08 14:48 | disposition home or self-care (01) ==
LOC: DL.ED 13:40
DX: S30.851A Superficial foreign body of abdominal wall, initial encounter (principal); W45.8XXA Other foreign body or object entering through skin, initial encounter
CPT/HCPCS: 99282; 99283; J3490

== ENCOUNTER 2024-02-01 22:53 | Emergency (ER) | payer MEDICAID ==
[2024-02-02 00:43] VITALS: BP 127/88; PULSE 80
[2024-02-02 01:08] LABS: AMPHETAMINES,URINE NEGATIVE (NEGATIVE); BARBITURATES,URINE NEGATIVE (NEGATIVE); BENZODIAZEPINE,URINE NEGATIVE (NEGATIVE); MDMA (ECSTASY), URINE NEGATIVE (NEGATIVE); METHADONE,URINE NEGATIVE (NEGATIVE); METHAMPHETAMINES,URINE NEGATIVE (NEGATIVE); OPIATES,URINE NEGATIVE (NEGATIVE); OXYCODONE,URINE NEGATIVE (NEGATIVE); PHENCYCLIDINE,URINE NEGATIVE (NEGATIVE); TCA,URINE NEGATIVE (NEGATIVE)
== END 2024-02-02 01:56 | disposition home or self-care (01) ==
LOC: DL.ED 22:53
DX: H54.62 Unqualified visual loss, left eye, normal vision right eye (principal); Z87.891 Personal history of nicotine dependence; Z77.098 Contact with and (suspected) exposure to other hazardous, chiefly nonmedicinal, chemicals
CPT/HCPCS: 80305-QW; 99282; 99284

== ENCOUNTER 2024-08-13 12:46 | Emergency (ER) | payer MEDICAID ==
[2024-08-13] MEDS ORDERED: Sodium Chloride 0.9% 10 ML Syringe FLUSH PRN (12:52)
[2024-08-13 13:09] LABS: BASOPHILS PERCENT AUTO 0.3 % (0.0-1.0); EOSINOPHILS PERCENT AUTO 0.4 % (1.0-3.0); HEMATOCRIT 43.3 % (37.0-47.0); HEMOGLOBIN 14.3 g/dL (12.0-16.0); LYMPHOCYTES PERCENT AUTO 15.8 % (20.5-50.1); MEAN CORPUSCULAR HEMOGLOBIN 29.2 pg (27.0-34.0); MEAN CORPUSCULAR VOLUME 88.4 fL (80-100); MONOCYTES PERCENT AUTO 11.2 % (2-8); NEUTROPHILS PERCENT AUTO 72.3 % (42.2-75.2); PLATELET COUNT,PLT 288 10^3/uL (150-450); WHITE BLOOD CELL COUNT,WBC 11.2 10^3/uL (5.0-10.0)
[2024-08-13 13:26] LABS: PROTHROMBIN TIME 10.4 SEC (9.0-12.0); PTT,PARTIAL THROMBOPLSTIN TIME 22.5 SEC (22.0-34.0)
[2024-08-13 13:28] LABS: ALANINE AMINOTRANSFERASE,ALT 74 U/L (14-59); ALBUMIN 3.9 g/dL (3.4-5.0); ALKALINE PHOSPHATASE 93 U/L (46-116); ANION GAP 11.6 mEq/L (7-13); ASPARTATE AMNIOTRANSFERASE,AST 41 U/L (15-37); BILIRUBIN TOTAL 2.9 mg/dL (0.2-1.0); BLOOD UREA NITROGEN,BUN 11 mg/dL (7-18); BUN/CREATININE RATIO 9.9 (No establ ref range); CALCIUM 9.3 mg/dL (8.5-10.1); CARBON DIOXIDE,CO2 28 mmol/L (21-32); CHLORIDE,CL 102 mmol/L (98-107); CREATININE 1.11 mg/dL (0.55-1.02); GLUCOSE RANDOM 107 mg/dL (70-99); MAGNESIUM 1.8 mg/dL (1.8-2.4); POTASSIUM,K 3.6 mmol/L (3.5-5.1); SODIUM,NA 138 mmol/L (136-145)
[2024-08-13 13:29] LABS: C-REACTIVE PROTEIN < 0.50 ng/dL (<=0.50); ESTIMATED GFR 69 mL/min (>=60); ETHANOL BLOOD MEDICAL < 3 mg/dL (0)
[2024-08-13 13:31] LABS: LACTIC ACID 1.1 mmol/L (0.4-2.0)
[2024-08-13] MEDS: Iopamidol 612 MG/ML 100 ML Bottle IVPUSH ONE (13:58)
[2024-08-13 14:31] LABS: APPEARANCE,URINE CLEAR (CLEAR); BILIRUBIN,URINE NEGATIVE (NEGATIVE); COLOR,URINE YELLOW (YELLOW); GLUCOSE,URINE NEGATIVE (NEGATIVE); KETONES,URINE NEGATIVE (NEGATIVE); LEUKOCYTE ESTERASE,URINE NEGATIVE (NEGATIVE); NITRITE,URINE NEGATIVE (NEGATIVE); OCCULT BLOOD,URINE TRACE-INTACT (NEGATIVE); PROTEIN,URINE TRACE (NEGATIVE); UROBILINOGEN,URINE 0.2 mg/dL (0.2-1.0)
[2024-08-13 14:36] LABS: AMPHETAMINES,URINE POSITIVE (NEGATIVE); BARBITURATES,URINE NEGATIVE (NEGATIVE); BENZODIAZEPINE,URINE NEGATIVE (NEGATIVE); MDMA (ECSTASY), URINE NEGATIVE (NEGATIVE); METHADONE,URINE NEGATIVE (NEGATIVE); METHAMPHETAMINES,URINE POSITIVE (NEGATIVE); OPIATES,URINE NEGATIVE (NEGATIVE); OXYCODONE,URINE NEGATIVE (NEGATIVE); PHENCYCLIDINE,URINE NEGATIVE (NEGATIVE); TCA,URINE NEGATIVE (NEGATIVE)
[2024-08-13 14:43] LABS: BACTERIA,URINE FEW /HPF (0-FEW/HPF); EPITHELIAL CELLS,URINE MODERATE /HPF (NOT SEEN); MUCUS,URINE FEW /LPF (NOT SEEN); RBC,URINE 0-5 /HPF (0-5)
[2024-08-13 14:44] LABS: AMORPHOUS SEDIMENT,URINE MODERATE /HPF (NOT SEEN)
[2024-08-13] MEDS: Acetaminophen 500 MG Tab PO ONE (14:58)
[2024-08-13 15:59] VITALS: BP 137/76; PULSE 65
== END 2024-08-13 17:17 | disposition home or self-care (01) ==
LOC: DL.ED 12:46
DX: T74.21XA Adult sexual abuse, confirmed, initial encounter (principal); S01.01XA Laceration without foreign body of scalp, initial encounter; Y04.2XXA Assault by strike against or bumped into by another person, initial encounter
CPT/HCPCS: 36415; 70450; 71260; 72125; 74177; 80053; 80305-QW; 80307; 81001; 83605; 83735; 84703; 85025; 85610; 85730; 86140; 99283; 99285; A9270-GY; Q9967

== ENCOUNTER 2025-05-13 04:42 | Emergency (ER) | payer MEDICAID ==
[2025-05-13] MEDS: Acetaminophen/HYDROcodone 325-5 MG Tab PO ONE (05:13)
[2025-05-13 05:20] VITALS: BP 118/72; PULSE 99
== END 2025-05-13 05:18 | disposition home or self-care (01) ==
LOC: DL.ED 04:42
DX: S02.2XXA Fracture of nasal bones, initial encounter for closed fracture (principal); Z79.899 Other long term (current) drug therapy; X58.XXXA Exposure to other specified factors, initial encounter; Y93.89 Activity, other specified
CPT/HCPCS: 99284; A9270

== ENCOUNTER 2025-07-09 22:52 | Emergency (ER) | payer MEDICAID ==
[2025-07-09 23:07] VITALS: BP 111/81; PULSE 125
== END 2025-07-09 23:24 | disposition left against medical advice (07) ==
LOC: DL.ED 22:52
DX: S00.33XA Contusion of nose, initial encounter (principal); Z79.899 Other long term (current) drug therapy; F17.210 Nicotine dependence, cigarettes, uncomplicated; Y04.8XXA Assault by other bodily force, initial encounter; Y93.89 Activity, other specified
CPT/HCPCS: 70150; 99283; 99284